=== PATIENT | male | born 1960 | race Caucasian/White ===

== ENCOUNTER → 2016-06-30 | Outpatient (CLI) | payer OTHER, BC ==
[~2016-06-30] MED LIST: GLYBURIDE5 MG PO; JANUMET 50/11 TABLET PO; LISINOPRIL10 MG PO; LO-DOSE ASPIRIN81 M2 PO
== END | disposition home or self-care (01) ==
LOC: AMB 12:30
DX: Z09 Encounter for follow-up examination after completed treatment for conditions other than malignant neoplasm (principal); Z87.828 Personal history of other (healed) physical injury and trauma
CPT/HCPCS: 99213